=== PATIENT | female | born 1925 | race Caucasian/White ===

== ENCOUNTER 2017-03-14 18:36 | Observation (INO) | payer MEDICARE ==
[2017-03-14] VITALS (10 sets, daily range): BP systolic 136–190; BP diastolic 60–88; PULSE 58–69; RESP 18–20; TEMP 98.6; O2SAT 94–97
[~2017-03-14] VITALS: Ht 149.9 cm; Wt 71.9 kg
[~2017-03-14 18:36] MED LIST: AMLO5TAB96 PO; ASPI81 PO; BUPR150T66 PO; CALTTAB2 PO; CLON-352 PO; COZA100T PO; DOXY100T PO; GEMF600T PO; GLIP5 PO; HYDR12.56 PO; IRON28TA OR; LEVO50TA51 PO; LORT5TAB PO; MEGA RED PO; METO50CR OR; MORP30SU OR; OMEP20TA OR; SULF1TAB47 PO; VITA100017 PO; VITA400C70 PO; VITA500T49 PO
[2017-03-14] MEDS ORDERED: ASPIRIN 325 MG TAB PO ONE (18:45)
--- NOTE | 2017-03-14 18:49 | PD ---
HPI Chief Complaint: chest pain Time Seen by Provider: 18:45 Travel History International Travel<30 days: No Contact w/Intl Traveler<30days: No Traveled to known affect area: No History of Present Illness HPI 89-year-old female with history of hypertension, presents to the ER today with 7 out of 10 substernal chest pains or radiation to the back that started on his own last night. She does not know any exacerbating or alleviating she had her tooth pulled yesterday. She denies any previous symptoms. Modifying Factors: None Associated Signs & Symptoms: Substernal chest pains Risk Factors: None PFSH Past Medical History Arthritis: Yes Autoimmune Disease: No Blood Disorders: No Anxiety: No Depression: Yes Heart Rhythm Problems: No Cancer: Yes (MELANOMA) Cardiac Catheterization: Yes Cardiovascular Problems: Yes High Cholesterol: Yes Chest Pain: Yes Congestive Heart Failure: No Diabetes: Yes Diminished Hearing: No Endocrine: Yes Gastrointestinal Disorders: Yes (N/V) GERD: Yes Genitourinary: No Hepatitis: No Hiatal Hernia: No Hypertension: Yes Immune Disorder: No Implanted Vascular Access Dvce: Yes Kidney Stones: No Musculoskeletal: Yes Neurologic: Yes Reproductive: No Respiratory: No Myocardial Infarction: No Renal Failure: No Thyroid Disease: Yes Ulcer: Yes PNEUMOCCOCAL Vaccine (Year): 1 Menopausal: Yes Past Surgical History Abdominal Surgery: Yes (APPY, KYLE) AICD: No Appendectomy: Yes (1954) Body Medical Devices: CARDIAC STENT Cardiac Surgery: Yes (STENT) Cholecystectomy: Yes (1956) Coronary Stent: Yes (2002) Ear Surgery: No Endocrine Surgery: No Eye Surgery: No Genitourinary Surgery: No Gynecologic Surgery: Yes (TL, OVARY REMOVED ) Hysterectomy: Yes (OVARIES REMOVED) Joint Replacement: Yes (BILAT KNEE) Oral Surgery: No Pacemaker: No Thoracic Surgery: No Other Surgery: Yes (MELANOMA REMOVED) Social History Alcohol Use: No Tobacco Use: No Substance Use: No Allergies-Medications (Allergen,Severity, Reaction): Coded Allergies: Ampicillin (Verified Allergy, Severe, rash, 03/14/17) Penicillin (Verified Allergy, Severe, rash, 03/14/17) PATIENT UNSURE IF SHE IS INDEED ALLERGIC TO PCN OR NOT Reported Meds & Prescriptions Reported Meds & Active Scripts Active Lortab 5/500 (Acetaminophen/Hydrocodone Bitart) 5 Mg/500 Mg Tab 1-2 Tab PO Q6HPRN Vibramycin (Doxycycline Hyclate) 100 Mg Cap 100 Mg PO BID Bactrim Ds (Trimethoprim/Sulfamethoxazole) Tab 1 Tab PO BID Reported Bupropion Er (Bupropion HCl) 150 Mg Tab 650 Mg PO DAILY Hctz (Hydrochlorothiazide) 12.5 Mg Cap 12.5 Mg PO DAILY Cozaar (Losartan Potassium) 100 Mg Tab 100 Mg PO BID DOSE UNKNOWN Omeprazole 20 Mg Tab 20 Mg OR DAILY Vitamin B12 (Cyanocobalamin) 500 Mcg Tab 500 Mcg PO DAILY Iron (Ferrous Sulfate) 28 Mg Tab 65 Mg OR DAILY [Karl Red] 300 Mg PO DAILY Vitamin E 400 Units Cap 400 Units PO DAILY Vitamin C (Ascorbic Acid) 1,000 Mg Tab 1,000 Mg PO DAILY Caltrate 600/Vitamin D 400 (Calcium/Vitamin D) 1 Tab Tab 1 Tab PO BID Aspirin 81 Mg Tab 81 Mg PO DAILY Morphine Sulfate 30 Mg Tab 30 Mg OR TID Levoxyl (Levothyroxine Sodium) 50 Mcg Tab 50 Mcg PO DAILY Metoprolol Succinate Er (Metoprolol Succinate) 50 Mg Tab 50 Mg OR BID Norvasc (Amlodipine Besylate) 5 Mg Tab 5 Mg PO BID Gemfibrozil 600 Mg Tab 600 Mg PO BID Clonidine Hcl (Clonidine HCl) 0.1 Mg Tab 0.1 Mg PO BID Glucotrol (Glipizide) 5 Mg Tab 5 Mg PO DAILY Review of Systems Except as stated in HPI: all other systems reviewed are Neg Physical Exam Narrative GENERAL: [Well-developed elderly white female patient in mild distress. Awake and oriented 3. SKIN: Focused skin assessment warm/dry. HEAD: Atraumatic. Normocephalic. EYES: Pupils equal and round. No scleral icterus. No injection or drainage. ENT: No nasal bleeding or discharge. Mucous membranes pink and moist. NECK: Trachea midline. No JVD. CARDIOVASCULAR: Regular rate and rhythm. No murmur appreciated. Pulses are present and equal bilaterally. RESPIRATORY: No accessory muscle use. Clear to auscultation. Breath sounds equal bilaterally. GASTROINTESTINAL: Abdomen soft, mild epigastric tenderness without guarding or rebound, nondistended. Hepatic and splenic margins not palpable. MUSCULOSKELETAL: No obvious deformities. No clubbing. No cyanosis. No edema. NEUROLOGICAL: Awake and alert. No obvious cranial nerve deficits. Motor grossly within normal limits. Normal speech. PSYCHIATRIC: Appropriate mood and affect; insight and judgment normal. Data Data Last Documented VS Vital Signs Date Time Temp Pulse Resp B/P Pulse Ox O2 Delivery O2 Flow Rate FiO2 03/14/17 18:51 96 Room Air 03/14/17 18:51 67 03/14/17 18:46 98.6 20 188/68 Orders Electrocardiogram (03/14/17 18:45) Ckmb (Isoenzyme) Profile (03/14/17 18:45) Complete Blood Count With Diff (03/14/17 18:45) Comprehensive Metabolic Panel (03/14/17 18:45) D-Dimer (03/14/17 18:45) Magnesium (Mg) (03/14/17 18:45) Prothrombin Time / Inr (Pt) (03/14/17 18:45) Act Partial Throm Time (Ptt) (03/14/17 18:45) Troponin I (03/14/17 18:45) Lipase (03/14/17 18:45) Chest, Single Ap (03/14/17 18:45) Ecg Monitoring (03/14/17 18:45) Bilateral Bp Monitoring (03/14/17 18:45) Iv Access Insert/Monitor (03/14/17 18:45) Oximetry (03/14/17 18:45) Oxygen Administration (03/14/17 18:45) Aspirin (Aspirin) (03/14/17 18:45) Sodium Chloride 0.9% Flush (Ns Flush) (03/14/17 18:45) Labs Laboratory Tests Test 03/14/17 18:48 White Blood Count 15.8 TH/MM3 Red Blood Count 3.38 MIL/MM3 Hemoglobin 10.6 GM/DL Hematocrit 30.6 % Mean Corpuscular Volume 90.5 FL Mean Corpuscular Hemoglobin 31.4 PG Mean Corpuscular Hemoglobin 34.8 % Concent Red Cell Distribution Width 12.8 % Platelet Count 324 TH/MM3 Mean Platelet Volume 9.2 FL Neutrophils (%) (Auto) 67.7 % Lymphocytes (%) (Auto) 19.2 % Monocytes (%) (Auto) 6.7 % Eosinophils (%) (Auto) 0.4 % Basophils (%) (Auto) 6.0 % Neutrophils # (Auto) 10.7 TH/MM3 Lymphocytes # (Auto) 3.0 TH/MM3 Monocytes # (Auto) 1.1 TH/MM3 Eosinophils # (Auto) 0.1 TH/MM3 Basophils # (Auto) 0.9 TH/MM3 CBC Comment AUTO DIFF Sodium Level 136 MEQ/L Potassium Level 4.6 MEQ/L Chloride Level 102 MEQ/L Calcium Level 9.2 MG/DL MDM Medical Decision Making Medical Screen Exam Complete: Yes Emergency Medical Condition: Yes Medical Record Reviewed: Yes Interpretation(s) EKG shows normal sinus rhythm at a rate of 69 bpm with no signs of acute ST-T changes. Differential Diagnosis Substernal chest and epigastric painsACS versus gastritis versus pancreatitis versus pneumonia versus PE Narrative Course Workup was initiated and patient was given aspirin in the ER. Physician Communication Physician Communication Case is signed out to Dr. Robles awaiting workup. Disposition based on workup. Diagnosis Primary Impression: Chest pain Condition: Stable Guido Jacobsen MD March 14, 2017 18:49
[2017-03-14 18:55] LABS: AUTOMATED NEUTROPHIL # 10.7 TH/MM3 (1.8-7.7); BASOPHIL # 0.9 TH/MM3 (0-0.2); EOSINOPHIL # 0.1 TH/MM3 (0-0.4); EOSINOPHIL % 0.4 % (0.0-4.0); HEMATOCRIT 30.6 % (35.0-46.0); LYMPH % 19.2 % (9.0-44.0); MEAN CELL VOLUME 90.5 FL (80.0-100.0); MEAN CORPUSCULAR HEMOGLOBIN 31.4 PG (27.0-34.0); MEAN CORPUSCULAR HGB CONC 34.8 % (32.0-36.0); MONO % 6.7 % (0.0-8.0); NEUT % 67.7 % (16.0-70.0); PLATELET COUNT 324 TH/MM3 (150-450); RED BLOOD COUNT 3.38 MIL/MM3 (4.00-5.30); RED CELL DISTRIBUTION WIDTH 12.8 % (11.6-17.2); WHITE BLOOD COUNT 15.8 TH/MM3 (4.0-11.0)
[2017-03-14 19:02] LABS: CHLORIDE 102 MEQ/L (98-107); POTASSIUM 4.6 MEQ/L (3.5-5.1); SODIUM (NA) 136 MEQ/L (136-145)
[2017-03-14 19:05] LABS: HEMO FLAGS AUTO DIFF
[2017-03-14 19:06] LABS: ANION GAP 10 MEQ/L (5-15); BICARBONATE 24.3 MEQ/L (21.0-32.0); MAGNESIUM 1.8 MG/DL (1.5-2.5)
[2017-03-14 19:07] LABS: BLOOD UREA NITROGEN 29 MG/DL (7-18)
[2017-03-14 19:09] LABS: ALT (GPT) 27 U/L (10-53); APTT (PATIENT) 26.6 SEC (24.3-30.1); AST (GOT) 17 U/L (15-37); GLOMERULAR FILTRATION RATE 39 ML/MIN (>89); PROTHROMBIN TIME - PATIENT 10.5 SEC (9.8-11.6)
[2017-03-14 19:11] LABS: TOTAL BILIRUBIN ADULT 0.5 MG/DL (0.2-1.0)
[2017-03-14 19:12] LABS: ALKALINE PHOSPHATASE 86 U/L (45-117)
--- NOTE | 2017-03-14 19:14 | PD ---
Physical Exam Date Seen by Provider: March 14, 2017 Time Seen by Provider: 19:12 Narrative accepted in transfer of care from Dr Jacobsen GENERAL: Well-nourished female in no respiratory distress SKIN: Warm and dry. HEAD: Normocephalic. EYES: No scleral icterus. No injection or drainage. NECK: Supple, trachea midline. No JVD or lymphadenopathy. CARDIOVASCULAR: Regular rate and rhythm without murmurs, gallops, or rubs. RESPIRATORY: Breath sounds equal bilaterally. No accessory muscle use. GASTROINTESTINAL: Abdomen soft, non-tender, nondistended. MUSCULOSKELETAL: No cyanosis, or edema. Bilateral radial and dorsalis pedis pulses 2+ to palpation. BACK: Nontender without obvious deformity. No CVA tenderness. Data Data Last Documented VS Vital Signs Date Time Temp Pulse Resp B/P Pulse Ox O2 Delivery O2 Flow Rate FiO2 03/14/17 21:00 60 18 148/77 97 Room Air 03/14/17 18:46 98.6 Orders Electrocardiogram (03/14/17 18:45) Ckmb (Isoenzyme) Profile (03/14/17 18:45) Complete Blood Count With Diff (03/14/17 18:45) Comprehensive Metabolic Panel (03/14/17 18:45) D-Dimer (03/14/17 18:45) Magnesium (Mg) (03/14/17 18:45) Prothrombin Time / Inr (Pt) (03/14/17 18:45) Act Partial Throm Time (Ptt) (03/14/17 18:45) Troponin I (03/14/17 18:45) Lipase (03/14/17 18:45) Chest, Single Ap (03/14/17 18:45) Ecg Monitoring (03/14/17 18:45) Bilateral Bp Monitoring (03/14/17 18:45) Iv Access Insert/Monitor (03/14/17 18:45) Oximetry (03/14/17 18:45) Oxygen Administration (03/14/17 18:45) Aspirin (Aspirin) (03/14/17 18:45) Sodium Chloride 0.9% Flush (Ns Flush) (03/14/17 18:45) Nitroglycerin Sl (Nitrostat Sl) (03/14/17 19:15) Sodium Chlor 0.9% 1000 Ml Inj (Ns 1000 M (03/14/17 19:15) Ct Pulmonary Angiogram (03/14/17 ) Iodixanol 320 Inj (Rad Ct) (Visipaque 32 (03/14/17 20:39) Morphine Inj (Morphine Inj) (03/14/17 21:00) Ondansetron Inj (Zofran Inj) (03/14/17 21:00) Nitroglycerin 2% Oint (Nitroglycerin 2% (03/14/17 21:15) Ketorolac Inj (Toradol Inj) (03/14/17 21:30) Admit Order (Ed Use Only) (03/14/17 ) ^ Saline Lock (03/14/17:27) Resp Oxygen Meliton C Titrat 1-4 L (03/14/17 ) Notify Dr: Other (03/14/17:27) Sodium Chloride 0.9% Flush (Ns Flush) (03/15/17 09:00) Sodium Chloride 0.9% Flush (Ns Flush) (03/14/17 21:30) Activity Bed Rest With Brp (03/14/17 21:27) Vital Signs (Adult) Q4H (03/14/17 21:27) Cardiac Rhythm .As Directed (03/14/17:27) Notify Dr: Other .PRN (03/14/17:) Notify Parameters (03/14/17 21:27) Resp Oxygen Nasal Cannula (03/14/17 ) Ckmb (Isoenzyme) Profile (03/14/17 21:45) Ckmb (Isoenzyme) Profile (03/15/17 00:45) Troponin I (03/14/17 21:45) Troponin I (03/15/17 00:45) Electrocardiogram (03/14/17 21:45) Electrocardiogram (03/15/17 00:45) ^ Obtain (03/14/17:27) Sodium Chloride 0.9% Flush (Ns Flush) (03/14/17 21:30) Sodium Chloride 0.9% Flush (Ns Flush) (03/15/17 09:00) Acetamin-Hydrocod 325-7.5 Mg ([place] 7.5 (03/14/17 21:30) Morphine Inj (Morphine Inj) (03/14/17 21:30) Aspirin (Aspirin) (03/15/17 09:00) Melt Room Operator / Telemetry LUIS.Q8H (03/14/17 21:27) ^ For Further Orders (03/14/17 21:27) Labs Laboratory Tests Test 03/14/17 18:48 White Blood Count 15.8 TH/MM3 Red Blood Count 3.38 MIL/MM3 Hemoglobin 10.6 GM/DL Hematocrit 30.6 % Mean Corpuscular Volume 90.5 FL Mean Corpuscular Hemoglobin 31.4 PG Mean Corpuscular Hemoglobin 34.8 % Concent Red Cell Distribution Width 12.8 % Platelet Count 324 TH/MM3 Mean Platelet Volume 9.2 FL Neutrophils (%) (Auto) 67.7 % Lymphocytes (%) (Auto) 19.2 % Monocytes (%) (Auto) 6.7 % Eosinophils (%) (Auto) 0.4 % Basophils (%) (Auto) 6.0 % Neutrophils # (Auto) 10.7 TH/MM3 Lymphocytes # (Auto) 3.0 TH/MM3 Monocytes # (Auto) 1.1 TH/MM3 Eosinophils # (Auto) 0.1 TH/MM3 Basophils # (Auto) 0.9 TH/MM3 CBC Comment AUTO DIFF Differential Total Cells 100 Counted Neutrophils % (Manual) 74 % Band Neutrophils % 1 % Lymphocytes % 14 % Monocytes % 10 % Eosinophils % 1 % Neutrophils # (Manual) 11.9 TH/MM3 Differential Comment FINAL DIFF MANUAL Platelet Estimate NORMAL Platelet Morphology Comment NORMAL Prothrombin Time 10.5 SEC Prothromb Time International 1.0 RATIO Ratio Activated Partial 26.6 SEC Thromboplast Time D-Dimer Quantitative (PE/DVT) 0.72 MG/L FEU Sodium Level 136 MEQ/L Potassium Level 4.6 MEQ/L Chloride Level 102 MEQ/L Carbon Dioxide Level 24.3 MEQ/L Anion Gap 10 MEQ/L Blood Urea Nitrogen 29 MG/DL Creatinine 1.30 MG/DL Estimat Glomerular Filtration 39 ML/MIN Rate Random Glucose 71 MG/DL Calcium Level 9.2 MG/DL Magnesium Level 1.8 MG/DL Total Bilirubin 0.5 MG/DL Aspartate Amino Transf 17 U/L (AST/SGOT) Alanine Aminotransferase 27 U/L (ALT/SGPT) Alkaline Phosphatase 86 U/L Total Creatine Kinase 66 U/L Troponin I LESS THAN 0.02 NG/ML Total Protein 7.4 GM/DL Albumin 3.5 GM/DL Lipase 116 U/L [facility] Medical Record Reviewed: Yes Supervised Visit with JAX: No Interpretation(s) EKG normal sinus rhythm rate [address] elevation or injury pattern however QS noted inferiorly in lead 3 and aVF age-indeterminate Troponin I: Less than 0.02, not elevated; CK: 66, not elevated Coagulation studies: Grossly within normal range D-dimer: 0.72 mildly elevated--patient with pleuritic chest pain and prior history of melanoma and breast cancer; will proceed with CT pulmonary angiogram CBC is automated differential patient does have mild leukocytosis of 15,800 with 74% neutrophils by manual differential--patient recently underwent dental extraction and is presently taking clindamycin, may reflect mild dental infection also not identified to have left small effusion with atelectasis; along with stress demargination Metabolic panel: Values grossly normal range except for mild renal insufficiency creatinine is 1.3 with GFR of 39 Differential Diagnosis accepted in transfer of care from Dr Jacobsen; please refer to her dictation Narrative Course accepted in transfer of care from Dr Jacobsen for follow up of labs and disposition Patient complains of 7/10 upper back pain interscapular Is now 9:[address] poor angiogram reveals no PE trace left pleural effusion basilar atelectasis and calcification of the right coronary artery. Patient continues to have 5/10 pleuritic chest pain. Chest wall is nontender and does not reproduce pain of presentation. Patient states she is to be followed by Dr. 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 Patient reports that she feels improved from when she initially presented. Blood pressure is 136/60. Plan will be to admit patient for serial cardiac enzyme call placed to cardiology service. Call placed to [facility] service for TRIMMER CLIMBER protocol. Patient continues to have pleuritic component to CP as well, no fever, no chills, no cough, no phlegm production, no wheezing, no chest wall tenderness to palpation, and no pain with range of motion. Patient has not taken her evening dose of pain medication that she takes for chronic back pain which is primarily lower back pain. Patient takes morphine three times daily. Patient identified to have trace left pleural effusion and basilar atelectasis no lobar infiltrate. Cardiac risk: CAD, stent, hypertension , dyslipidemia, diabetes, female age 89. Physician Communication Physician Communication case discussed with Cardiology senior solutions architect; [facility] service Diagnosis Primary Impression: Chest pain Qualified Code: R07.2 - Precordial pain Additional Impression: Pleuritic chest pain Admitting Information Admitting Physician Requests: Observation Condition: Stable Leena Robles MD March 14, 2017 19:14
[2017-03-14] MEDS ORDERED: BUPR1TAB29 PO (19:15)
[2017-03-14] MEDS ORDERED: ASCO500C PO (19:15)
[2017-03-14] MEDS ORDERED: LEVO50TA4 PO (19:15)
[2017-03-14] MEDS ORDERED: OMEP20TA PO (19:15)
[2017-03-14] MEDS ORDERED: CLON0.2T PO (19:15)
[2017-03-14] MEDS ORDERED: FERR325T PO (19:15)
[2017-03-14] MEDS ORDERED: SODIUM CHLOR 0.9% 1000 ML INJ 1,000 ML IV SCH (19:15)
[2017-03-14] MEDS ORDERED: AMLO5TAB2 PO (19:15)
[2017-03-14] MEDS ORDERED: CALC600T10 PO (19:15)
[2017-03-14] MEDS ORDERED: ATOR20TA15 PO (19:15)
[2017-03-14] MEDS ORDERED: GLIP5TAB8 PO (19:15)
[2017-03-14] MEDS ORDERED: MORP1TAB25 PO (19:15)
[2017-03-14] MEDS ORDERED: HYDR25TA5 PO (19:15)
[2017-03-14] MEDS ORDERED: ALEN1TAB48 PO (19:15)
[2017-03-14] MEDS ORDERED: LEVO100T5 PO (19:15)
[2017-03-14] MEDS ORDERED: VITA100021 SL (19:15)
[2017-03-14] MEDS ORDERED: CLON0.5T PO (19:15)
[2017-03-14] MEDS ORDERED: ASPI81CH CHEW (19:15)
[2017-03-14] MEDS ORDERED: METO50TA PO (19:15)
[2017-03-14] MEDS ORDERED: ONDA1TAB16 PO (19:15)
--- NOTE | 2017-03-14 19:16 | RADHPO ---
EXAM DATE/TIME: 03/14/2017 18:52 [facility] COMPARISON: CHEST SINGLE AP, December 30, 2011, 10:39. INDICATIONS : Chest pain. MEDICAL HISTORY : None. SURGICAL HISTORY : None. ENCOUNTER: Initial ACUITY: 1 day PAIN SCORE: 7/10 LOCATION: Bilateral chest FINDINGS: Very small left pleural effusion suspected and with trace left base atelectasis. Right lung clear. Th ere is no pneumothorax seen. Heart size stable, within normal limits. CONCLUSION: Small effusion and mild atelectasis at the left lung base. Mika Max MD on March 14, 2017 at 19:13 Board Certified Radiologist. This report was verified electronically.
[2017-03-14] MEDS: NITROGLYCERIN 0.4 MG SL 25 TABS/BTL SL PRN ×3 (19:20→19:31)
[2017-03-14] MEDS: SODIUM CHLORIDE 0.9% FLUSH 10 ML FLUSH IVF PRN ×2 (19:22→21:22)
[2017-03-14 19:28] LABS: CREATINE KINASE 66 U/L (26-192)
[2017-03-14 19:30] LABS: BANDS 1 % (0-6); EOSINOPHILS 1 % (0-4); NEUTROPHIL # MANUAL DIFF 11.9 TH/MM3 (1.8-7.7); PLATELET ESTIMATE SMEAR NORMAL (NORMAL); PLATELET MORPHOLOGY NORMAL (NORMAL); POLYS (SEG NEUTROPHILS) 74 % (16-70); SCAN/DIFF FINAL DIFF MANUAL; WBC DIFF SAMPLE 100
[2017-03-14] MEDS ORDERED: IODIXANOL 320 MG/ML 10 ML VIAL (for Rad CT) IV ONE (20:39)
--- NOTE | 2017-03-14 20:47 | RADHPO ---
EXAM DATE/TIME: 03/14/2017 20:10 [facility] COMPARISON: No previous studies available for comparison. INDICATIONS : Substernal chest pain radiating to the back. IV CONTRAST: 50 cc Visipaque (iodixanol) IV RADIATION DOSE: 14.89 CTDIvol (mGy) MEDICAL HISTORY : Hypertension. Gastroesophageal reflux disease. Diabetes. SURGICAL HISTORY : Coronary artery stent. Cholecystectomy. ENCOUNTER: Initial ACUITY: 1 day PAIN SCALE: 7/10 LOCATION: chest TECHNIQUE: Volumetric scanning of the chest was performed using a pulmonary embolism protocol MIP images were re constructed. Using automated exposure control and adjustment of the mA and/or kV according to patien t size, radiation dose was kept as low as reasonably achievable to obtain optimal diagnostic quality images. FINDINGS: PULMONARY ARTERIES: No filling defects are seen in the pulmonary arteries through the segmental level. LUNGS: Mild bibasilar atelectasis. PLEURAE: Trace left effusion. MEDIASTINUM: There is mild cardiac enlargement, mainly the right and left atria. There is right-sided predominant coronary artery calcification noted. MUSCULOSKELETAL: No acute bony abnormality demonstrated. MISCELLANEOUS: Small hiatal hernia. CONCLUSION: 1. No pulmonary embolus. 2. Coronary artery calcification, mainly the right coronary. 3. Mild right and left atrial enlargement. 4. Mild bibasilar atelectasis. Tiny left pleural effusion. 5. Small hiatal hernia. Mika Max MD on March 14, 2017 at 20:43 Board Certified Radiologist. This report was verified electronically.
[2017-03-14] MEDS ORDERED: MORPHINE SULFATE 4 MG/ML INJ IV PUSH ONE (21:00)
[2017-03-14] MEDS ORDERED: ONDANSETRON HCL 4 MG/2 ML VIAL IV PUSH ONE (21:00)
[2017-03-14] MEDS ORDERED: NITROGLYCERIN 2% OINT 1 GM PACKET TOPICAL ONE (21:15)
[2017-03-14] MEDS ORDERED: MORPHINE SULFATE 4 MG/ML INJ IV PRN (21:30)
[2017-03-14] MEDS ORDERED: KETOROLAC TROMETHAMINE 30 MG/ML (IVP) VIAL IV PUSH ONE (21:30)
[2017-03-14] MEDS ORDERED: SODIUM CHLORIDE 0.9% FLUSH 10 ML FLUSH PRN (21:30)
[2017-03-14] MEDS ORDERED: SODIUM CHLORIDE 0.9% FLUSH 10 ML FLUSH IVF PRN (21:30)
[2017-03-15] VITALS (7 sets, daily range): BP systolic 118–165; BP diastolic 49–67; PULSE 58–65; RESP 16–18; TEMP 96.7–98.8; O2SAT 95–100
[2017-03-15] MEDS: ACETAMINOPHEN/HYDROcodone 325 MG/7.5 MG TAB PO PRN ×2 (01:24→09:26)
[2017-03-15] MEDS ORDERED: ACETAMINOPHEN 325 MG TAB PO PRN (05:45)
[2017-03-15] MEDS ORDERED: ONDANSETRON HCL 4 MG/2 ML VIAL IVP PRN (05:45)
[2017-03-15] MEDS ORDERED: NALOXONE HCL 0.4 MG/ML AMP IV PRN (05:45)
[2017-03-15] MEDS ORDERED: BISACODYL 10 MG SUPP RECTAL PRN (05:45)
[2017-03-15] MEDS ORDERED: GLUCAGON 1 MG/ML VIAL OTHER PRN (05:45)
[2017-03-15] MEDS ORDERED: DEXTROSE 50% IN WATER 50 ML VIAL(D50) IV PUSH PRN (05:45)
[2017-03-15] MEDS ORDERED: hydrALAZINE HCL 20 MG/ML VIAL IV PRN (05:45)
[2017-03-15] MEDS ORDERED: cloNIDine HCL 0.1 MG TAB PO PRN (05:45)
[2017-03-15] MEDS ORDERED: HEPARIN SODIUM - SQ 10,000 UNITS/ML VIAL SQ SCH (06:00)
[2017-03-15] MEDS ORDERED: LEVOTHYROXINE SODIUM 100 MCG TAB PO SCH (06:00)
[2017-03-15] MEDS ORDERED: PANTOPRAZOLE SOD 20 MG DELAYED RELEASE TAB PO SCH (06:00)
[2017-03-15] MEDS ORDERED: clonazePAM 0.5 MG TAB PO PRN (06:00)
[2017-03-15] MEDS: INSULIN ASPART SUPPLEMENTAL SCALE SQ SCH ×2 (06:18→11:00)
[2017-03-15] MEDS: MORPHINE SULFATE 30 MG CONTROLLED RELEASE TAB PO SCH ×2 (06:18→15:05)
--- NOTE | 2017-03-15 08:30 | HHI.HP ---
[facility] Manolo Sharp MD Admission Diagnosis chest pain Diagnoses: Chief Complaint: Chest pain Travel History International Travel<30 Days: No Contact w/Intl Traveler <30 Da: No Traveled to Known Affected Are: No History of Present Illness This is a 89-year-old female with a history of coronary artery disease status post TX and stent, hypertension, diabetes mellitus, heart per lipidemia, chronic kidney disease stage III and arthritis. She presented to the emergency room because of persistent chest pain which started yesterday. It is a constant sharp moderate to severe 8 out of 10 retrosternal pain radiating to her upper back worse with inspiration. No radiation of pain to the neck and upper extremities, shortness of breath, palpitations, dizziness, diaphoresis, nausea and vomiting. Denies fever, chills, cough and recent trauma. She had her tooth extracted 2 days ago and has been on antibiotics as 2 more pills to take. Workup so far unremarkable. She ruled out for TX, CTA negative for PE and pneumonia. She wants to find out what's going on with her and willing to undergo stress test and further evaluation including cardiac catheterization if warranted Review of Systems Constitutional: DENIES: Diaphoretic episodes, Fatigue, Fever, Weight gain, Weight loss, Chills, Dizziness, Change in appetite, Night Sweats Endocrine: DENIES: Heat/cold intolerance, Polydipsia, Polyuria, Polyphagia Eyes: DENIES: Blurred vision, Diplopia, Vision loss, Photosensitivity Ears, nose, mouth, throat: DENIES: Tinnitus, Vertigo, Throat pain, Hoarseness, Epistaxis, Odynophagia Respiratory: DENIES: Cough, Wheezing, Hemoptysis, Sputum production, Shortness of breath Cardiovascular: DENIES: Chest pain, Palpitations, Syncope, Dyspnea on Exertion , PND, Lower Extremity Edema, Orthopnea, Claudication Gastrointestinal: DENIES: Abdominal pain, Black stools, Bloody stools, Constipation, Diarrhea, Nausea, Vomiting, Difficulty Swallowing, Anorexia Genitourinary: DENIES: Urinary frequency, Urinary incontinence, Urgency, Hematuria, Dysuria, Nocturia, Vaginal discharge Musculoskeletal: COMPLAINS OF: Back pain Integumentary: DENIES: Rash Neurologic: DENIES: Headache, Localized weakness, Seizures, Tremor, Poor Balance Psychiatric: DENIES: Anxiety, Confusion, Depression, Hallucinations, Agitation , Suicidal Ideation, Homicidal Ideation, Delusions Except as stated in HPI: all other systems reviewed are Neg Past Family Social History Past Medical History As previously mentioned Past Surgical History Appendectomy, cholecystectomy, cardiac stenting, hysterectomy, oophorectomy, bilateral knee replacement and melanoma removal Reported Medications Lortab 5/500 (Acetaminophen/Hydrocodone Bitart) 5 Mg/500 Mg Tab 1-2 Tab PO Q6HPRN Vibramycin (Doxycycline Hyclate) 100 Mg Cap 100 Mg PO BID Bactrim Ds (Trimethoprim/Sulfamethoxazole) Tab 1 Tab PO BID Reported Bupropion Er (Bupropion HCl) 150 Mg Tab 650 Mg PO DAILY Hctz (Hydrochlorothiazide) 12.5 Mg Cap 12.5 Mg PO DAILY Cozaar (Losartan Potassium) 100 Mg Tab 100 Mg PO BID DOSE UNKNOWN Omeprazole 20 Mg Tab 20 Mg OR DAILY Vitamin B12 (Cyanocobalamin) 500 Mcg Tab 500 Mcg PO DAILY Iron (Ferrous Sulfate) 28 Mg Tab 65 Mg OR DAILY [Karl Red] 300 Mg PO DAILY Vitamin E 400 Units Cap 400 Units PO DAILY Vitamin C (Ascorbic Acid) 1,000 Mg Tab 1,000 Mg PO DAILY Caltrate 600/Vitamin D 400 (Calcium/Vitamin D) 1 Tab Tab 1 Tab PO BID Aspirin 81 Mg Tab 81 Mg PO DAILY Morphine Sulfate 30 Mg Tab 30 Mg OR TID Levoxyl (Levothyroxine Sodium) 50 Mcg Tab 50 Mcg PO DAILY Metoprolol Succinate Er (Metoprolol Succinate) 50 Mg Tab 50 Mg OR BID Norvasc (Amlodipine Besylate) 5 Mg Tab 5 Mg PO BID Gemfibrozil 600 Mg Tab 600 Mg PO BID Clonidine Hcl (Clonidine HCl) 0.1 Mg Tab 0.1 Mg PO BID Glucotrol (Glipizide) 5 Mg Tab 5 Mg PO DAILY Allergies: Coded Allergies: Ampicillin (Verified Allergy, Severe, rash, 03/14/17) Penicillin (Verified Allergy, Severe, rash, 03/14/17) PATIENT UNSURE IF SHE IS INDEED ALLERGIC TO PCN OR NOT Family History Coronary artery disease Social History Does not smoke or drink Physical Exam Vital Signs Vital Signs Date Time Temp Pulse Resp B/P Pulse Ox O2 Delivery O2 Flow Rate FiO2 03/15/17 05:36 98.1 60 16 165/67 100 03/15/17 02:30 60 03/15/17 02:00 65 18 127/54 95 Room Air 03/15/17 01:00 61 16 130/59 95 Room Air 03/15/17 00:00 98.8 58 16 118/49 96 Room Air 03/14/17 23:06 16 03/14/17 23:00 62 18 140/60 95 Room Air 03/14/17 23:00 63 16 96 Room Air 03/14/17 22:15 16 03/14/17 22:00 58 18 144/60 96 Room Air 03/14/17 21:00 60 18 148/77 97 Room Air 03/14/17 20:00 67 18 136/60 94 Room Air 03/14/17 19:40 18 03/14/17 19:34 68 18 163/68 95 Room Air 03/14/17 19:26 58 18 166/66 96 Room Air 03/14/17 19:15 68 18 Room Air 03/14/17 19:08 66 18 190/69 97 Room Air 03/14/17 19:00 68 18 177/71 96 Room Air 177/88 03/14/17 19:00 68 18 177/71 96 Room Air 03/14/17 18:51 96 Room Air 03/14/17 18:51 67 96 Room Air 03/14/17 18:51 96 Room Air 03/14/17 18:46 98.6 69 20 188/68 96 Physical Exam GENERAL: This is a well-nourished, well-developed patient, in no apparent distress. SKIN: No rashes, ecchymoses or lesions. Cool and dry. HEAD: Atraumatic. Normocephalic. No temporal or scalp tenderness. EYES: Pupils equal round and reactive. Extraocular motions intact. No scleral icterus. No injection or drainage. ENT: Nose without bleeding, purulent drainage or septal hematoma. Throat without erythema, tonsillar hypertrophy or exudate. Uvula midline. Airway patent. NECK: Trachea midline. No JVD or lymphadenopathy. Supple, nontender, no meningeal signs. CARDIOVASCULAR: Regular rate and rhythm without murmurs, gallops, or rubs. RESPIRATORY: Clear to auscultation. Breath sounds equal bilaterally. No wheezes , rales, or rhonchi. Tender chest wall GASTROINTESTINAL: Abdomen soft, non-tender, nondistended. No guarding. MUSCULOSKELETAL: Extremities without clubbing, cyanosis, or edema. No joint tenderness, effusion, or edema noted. No calf tenderness. Negative Homans sign bilaterally. NEUROLOGICAL: Awake and alert. Cranial nerves II through XII intact. Motor and sensory grossly within normal limits. Five out of 5 muscle strength in all muscle groups. Normal speech. Laboratory Laboratory Tests Test 03/14/17 03/14/17 03/15/17 18:48 22:15 00:50 White Blood Count 15.8 Red Blood Count 3.38 Hemoglobin 10.6 Hematocrit 30.6 Mean Corpuscular Volume 90.5 Mean Corpuscular Hemoglobin 31.4 Mean Corpuscular Hemoglobin 34.8 Concent Red Cell Distribution Width 12.8 Platelet Count 324 Mean Platelet Volume 9.2 Neutrophils (%) (Auto) 67.7 Lymphocytes (%) (Auto) 19.2 Monocytes (%) (Auto) 6.7 Eosinophils (%) (Auto) 0.4 Basophils (%) (Auto) 6.0 Neutrophils # (Auto) 10.7 Lymphocytes # (Auto) 3.0 Monocytes # (Auto) 1.1 Eosinophils # (Auto) 0.1 Basophils # (Auto) 0.9 CBC Comment AUTO DIFF Differential Total Cells 100 Counted Neutrophils % (Manual) 74 Band Neutrophils % 1 Lymphocytes % 14 Monocytes % 10 Eosinophils % 1 Neutrophils # (Manual) 11.9 Differential Comment FINAL DIFF MANUAL Platelet Estimate NORMAL Platelet Morphology Comment NORMAL Prothrombin Time 10.5 Prothromb Time International 1.0 Ratio Activated Partial 26.6 Thromboplast Time D-Dimer Quantitative (PE/DVT) 0.72 Sodium Level 136 Potassium Level 4.6 Chloride Level 102 Carbon Dioxide Level 24.3 Anion Gap 10 Blood Urea Nitrogen 29 Creatinine 1.30 Estimat Glomerular Filtration 39 Rate Random Glucose 71 Calcium Level 9.2 Magnesium Level 1.8 Total Bilirubin 0.5 Aspartate Amino Transf 17 (AST/SGOT) Alanine Aminotransferase 27 (ALT/SGPT) Alkaline Phosphatase 86 Total Creatine Kinase 66 57 46 Troponin I LESS THAN 0.02 0.02 0.02 Total Protein 7.4 Albumin 3.5 Lipase 116 Result Diagram: 03/14/17 [id number] Imaging EKG tracing interpreted by me with sinus rhythm Q in the inferior lead no significant change from previous Chest x-ray image interpreted by me with no infiltrate Last Impressions Chest X-Ray 03/14/17 1845 Signed Impressions: Service Date/Time: Tuesday, March 14, 2017 18:52 - CONCLUSION: Small effusion and mild atelectasis at the left lung base. Mika Max MD CT Angiography 03/14/17 0000 Signed Impressions: Service Date/Time: Tuesday, March 14, 2017 20:10 - CONCLUSION: 1. No pulmonary embolus. 2. Coronary artery calcification, mainly the right coronary. 3. Mild right and left atrial enlargement. 4. Mild bibasilar atelectasis. Tiny left pleural effusion. 5. Small hiatal hernia. Mika Max MD Assessment and Plan Problem List: (1) Chest pain ICD Code: R07.9 Status: Acute (2) Pleuritic chest pain ICD Code: R07.81 Status: Acute Assessment and Plan This is a 89-year-old female who presented to the emergency room because of persistent chest pain which started yesterday. It is a constant sharp moderate to severe 8 out of 10 retrosternal pain radiating to her upper back worse with inspiration. No radiation of pain to the neck and upper extremities, shortness of breath, palpitations, dizziness, diaphoresis, nausea and vomiting. Denies fever, chills, cough and recent trauma. Workup so far unremarkable. She ruled out for TX, CTA negative for PE and pneumonia. She wants to find out what's going on with her and willing to undergo stress test and further evaluation including cardiac catheterization if warranted Atypical chest pain with history of coronary artery disease status post TX. Lexiscan today. Continue aspirin and Lopressor. Start scheduled NSAIDs with GI prophylaxis sounds like musculoskeletal with tender chest wall. Denies heartburn symptoms and pain not related to meals Leukocytosis likely reactive. Dental extraction site no evidence of infection. Monitor Chronic medical conditions of hypertension, diabetes mellitus, lipidemia, chronic kidney disease stage III and arthritis. Stable continue outpatient medications as appropriate. Monitor fingerstick with sliding scale coverage Steven prophylaxis with SCD and subcutaneous heparin Discussed Condition With Patient Discharge patient to home Condition on discharge: Improved Regular Diet as tolerated Ad Radha activity Rx written: Ibuprofen Follow-up with primary care physician in one week Problem Qualifiers (1) Chest pain: Qualified Code: R07.2 - Precordial pain Kenneth Oneal MD March 15, 2017 08:30
[2017-03-15] MEDS ORDERED: IBUP400T20 PO (08:34)
--- NOTE | 2017-03-15 08:34 | HHI.DCPOC ---
Discharge Care Plan Diagnosis: (1) Pleuritic chest pain (2) Chest pain Your Health Problems Are: Difficulty with ADL Exercise Tolerance Goals to Promote Your Health * To prevent worsening of your condition and complications * To maintain your health at the optimal level Directions to Meet Your Goals Take your medications as prescribed Follow your dietary instruction Follow activity as directed Keep your appointments as scheduled Take your immunizations and boosters as scheduled If your symptoms worsen call your PCP, if no PCP go to Urgent Care Center or Emergency Room Smoking is Dangerous to Your Health. Avoid second hand smoke Call the 24-hour hour crisis hotline for domestic abuse at Kenneth Oneal MD March 15, 2017 08:34
[2017-03-15] MEDS ORDERED: DEXT 5%-NACL 0.45% 1000 ML INJ 1,000 ML IV SCH (08:45)
[2017-03-15 08:57] LABS: POTASSIUM 4.5 MEQ/L (3.5-5.1)
[2017-03-15] MEDS ORDERED: ASPIRIN 325 MG TAB PO SCH (09:00)
[2017-03-15] MEDS ORDERED: FERROUS SULFATE 325 MG (65 MG ELEMENTAL IRON) TAB PO SCH (09:00)
[2017-03-15] MEDS ORDERED: SODIUM CHLORIDE 0.9% FLUSH 10 ML FLUSH IV FLUSH SCH (09:00)
[2017-03-15] MEDS ORDERED: cloNIDine HCL 0.2 MG TAB PO SCH (09:00)
[2017-03-15] MEDS ORDERED: METOPROLOL TARTRATE 50 MG TAB PO SCH (09:00)
[2017-03-15] MEDS ORDERED: buPROPion HCL 150 MG SUSTAINED RELEASE TAB PO SCH (09:00)
[2017-03-15] MEDS ORDERED: amLODIPine BESYLATE 5 MG TAB PO SCH (09:00)
[2017-03-15] MEDS ORDERED: IBUPROFEN 400 MG TAB PO SCH (09:00)
[2017-03-15] MEDS ORDERED: SODIUM CHLORIDE 0.9% FLUSH 10 ML FLUSH SCH (09:00)
[2017-03-15 09:02] LABS: BICARBONATE 25.3 MEQ/L (21.0-32.0); MAGNESIUM 1.9 MG/DL (1.5-2.5)
--- NOTE | 2017-03-15 09:53 | EKG ---
Date Performed: 03/15/2017 Time Performed: 00:42:56 PTAGE: 89 years EKG: Sinus rhythm . Normal ECG PREVIOUS TRACING : 03/14/2017 21.36 DOCTOR: Kamila Mcintyre Interpretating Date/Time 03/15/2017 09:51:48
--- NOTE | 2017-03-15 10:04 | EKG ---
Date Performed: 03/14/2017 Time Performed: 21:36:16 PTAGE: 89 years EKG: Sinus bradycardia Inferior infarct - age undetermined Abnormal ECG PREVIOUS TRACING : 03/14/2017 18.38 DOCTOR: Kamila Mcintyre Interpretating Date/Time 03/15/2017 10:03:00
--- NOTE | 2017-03-15 10:07 | EKG ---
Date Performed: 03/14/2017 Time Performed: 18:38:04 PTAGE: 89 years EKG: Sinus rhythm . Inferior infarct - age undetermined Abnormal ECG PREVIOUS TRACING : 12/30/2011 10.19 DOCTOR: Kamila Mcintyre Interpretating Date/Time 03/15/2017 10:05:30
[2017-03-15 10:09] LABS: BASOPHIL % 0.3 % (0.0-2.0); EOSINOPHIL # 0.1 TH/MM3 (0-0.4); EOSINOPHIL % 0.8 % (0.0-4.0); HEMATOCRIT 26.3 % (35.0-46.0); HEMO FLAGS DIFF FINAL; LYMPH % 19.6 % (9.0-44.0); LYMPHOCYTE # 1.6 TH/MM3 (1.0-4.8); MEAN CELL VOLUME 95.4 FL (80.0-100.0); MEAN CORPUSCULAR HEMOGLOBIN 33.2 PG (27.0-34.0); MEAN CORPUSCULAR HGB CONC 34.8 % (32.0-36.0); MONO % 6.8 % (0.0-8.0); NEUT % 72.5 % (16.0-70.0); PLATELET COUNT 254 TH/MM3 (150-450); RED BLOOD COUNT 2.76 MIL/MM3 (4.00-5.30); RED CELL DISTRIBUTION WIDTH 13.5 % (11.6-17.2); WHITE BLOOD COUNT 8.3 TH/MM3 (4.0-11.0)
[2017-03-15] MEDS ORDERED: REGADENOSON INJ 0.4 MG/5 ML SYR IV ONE (11:48)
--- NOTE | 2017-03-15 12:19 | RADHPO ---
EXAM DATE/TIME: 03/15/2017 11:06 [facility] COMPARISON: No previous studies available for comparison. INDICATIONS : Mid chest pain intermittent for one day. Coronary artery disease. Myocardial infarction. DOSE: 25.7 mCi Tc99m Myoview at stress. 8.5 mCi Tc99m Myoview at rest. 0.4 mg Lexiscan STRESS SYMPTOMS: Warm feeling. EJECTION FRACTION: 56% MEDICAL HISTORY : Diabetes mellitus type 2. Hypertension. Renal failure, chronic. SURGICAL HISTORY : Coronary artery stent. ENCOUNTER: Initial ACUITY: 1 day PAIN SCALE: 8/10 LOCATION: Midsternal chest TECHNIQUE: The patient underwent pharmacologic stress with infusion of prescribed dose. Continuous ECG tracing was monitored during stress. Gated SPECT imaging was performed after stress and conventional SPECT i maging was performed at rest. The examination was performed on a SPECT/CT scanner, both attenuation and non-corrected datasets were reviewed. FINDINGS: DISTRIBUTION: The maximum perfused segment at stress is in the anterior wall. PERFUSION STUDY: The pattern of perfusion at stress is within normal limits. There is a summed stress score of zero. GATED STUDY: There is intact wall motion and thickening without hypokinetic or dyskinetic segments. CONCLUSION: 1. No fixed or reversible wall defects to suggest ischemia or infarction. 2. Normal wall motion and calculated ejection fraction. RISK CATEGORY: Low (<1% Annual Mortality Rate) Jus Lauren MD on March 15, 2017 at 12:16 Board Certified Radiologist. This report was verified electronically.
[2017-03-15] MEDS ORDERED: ATORVASTATIN 20 MG TAB PO SCH (21:00)
--- NOTE | 2017-03-16 14:07 | TR ---
Date Performed: 03/15/2017 Time Performed: 11:27:33 DOCTOR: Joe Velasquez DRUG LIST: CLINICAL HISTORY: CAD REASON FOR TEST: CAD REASON FOR ENDING: OBSERVATION: CONCLUSION: Lexiscan stress test was performed under standard four minute protocol. Radionuclid e was injected one minute prior to ending the test. No electrocardiographic abormalities were present to suggest ischemia. Nuclear imaging and interpretation are pending. COMMENTS:
[2017-03-17] MEDS ORDERED: LEVOTHYROXINE SODIUM 50 MCG TAB PO SCH (06:00)
== END 2017-03-15 16:48 | disposition home or self-care (01) ==
LOC: PHED 18:36 → PHEDA 21:30 → PH3A 03-15 02:25
PROVIDERS: ADMIT Internal Medicine; ATTEND Internal Medicine
DX: R07.81 Pleurodynia (principal); D72.829 Elevated white blood cell count, unspecified; I25.10 Atherosclerotic heart disease of native coronary artery without angina pectoris; E11.22 Type 2 diabetes mellitus with diabetic chronic kidney disease; I12.9 Hypertensive chronic kidney disease with stage 1 through stage 4 chronic kidney disease, or unspecified chronic kidney disease; N18.3 Chronic kidney disease, stage 3 (moderate); K21.9 Gastro-esophageal reflux disease without esophagitis; E78.5 Hyperlipidemia, unspecified; E78.00 Pure hypercholesterolemia, unspecified; I25.2 Old myocardial infarction; F32.9 Major depressive disorder, single episode, unspecified; Z85.820 Personal history of malignant melanoma of skin; Z79.82 Long term (current) use of aspirin; Z95.5 Presence of coronary angioplasty implant and graft; Z96.653 Presence of artificial knee joint, bilateral
CPT/HCPCS: 71010; 71275; 78452; 80048; 80053; 82550; 82948; 83690; 83735; 84484; 85007; 85025; 85027; 85379; 85610; 85730; 93005; 93017; 94150; 96361; 96374; 96375; 99285; A9502; G0378; J1644; J1885; J2270; J2405; J2785; J7030; Q9967